=== PATIENT | female | born 1990 | race Caucasian/White ===

== ENCOUNTER 2019-08-06 11:57 | Emergency (ER) | payer BC ==
[~2019-08-06] VITALS: Ht 167.6 cm; Wt 60.8 kg
[2019-08-06 12:01] VITALS: Ht 167.6 cm; Wt 60.8 kg
[2019-08-06 13:03] LABS: BASOPHIL % 0.3 % (0-2); RED CELL DISTRIBUTION WIDTH 12.5 % (11.5-14.5)
[2019-08-06 13:05] LABS: PLATELET COUNT 118 x10^3mcL (130-400)
[2019-08-06 13:07] LABS: CALCIUM 8.8 mg/dL (8.5-10.1); CARBON DIOXIDE 28.5 mmol/L (21-32); CHLORIDE SERUM 98 mmol/L (98-107); CREATININE SERUM 0.7 mg/dL (0.6-1.0); GFR1 > 60 mL/min; GLUCOSE SERUM 83 mg/dL (74-106); POTASSIUM SERUM 3.6 mmol/L (3.5-5.1); SODIUM SERUM 136 mmol/L (136-145)
[2019-08-06 13:12] LABS: ALBUMIN 3.7 g/dL (3.4-5.0); ALKALINE PHOSPHATASE 60 U/L (46-116); ALT/SGPT 16 U/L (14-59); AST/SGOT 19 U/L (15-37); BILIRUBIN TOTAL 0.31 mg/dL (0.20-1.00); TOTAL PROTEIN, SERUM 7.3 g/dL (6.4-8.2)
[2019-08-06 15:31] VITALS: BP 120/78
== END 2019-08-06 15:31 | disposition home or self-care (01) ==
LOC: ED 11:57
PROVIDERS: Specialist
DX: O99.511 Diseases of the respiratory system complicating pregnancy, first trimester (principal); E86.0 Dehydration; J10.1 Influenza due to other identified influenza virus with other respiratory manifestations; Z3A.01 Less than 8 weeks gestation of pregnancy
CPT/HCPCS: 87804; J7042